=== PATIENT | female | born 1965 | race Caucasian/White ===

== ENCOUNTER 2016-10-23 17:38 | Emergency (ER) | payer OTHER ==
[2016-10-23 21:03] LABS: HEMOGLOBIN 10.2 gm/dl (12.3-15.3); RED BLOOD COUNT 4.44 M/UL (4.00-5.10); WHITE BLOOD COUNT 12.1 K/UL (4.5-11.0)
[2016-10-23 21:20] LABS: BUN/CREATININE RATIO 8 (0-10)
== END 2016-10-23 23:24 | disposition home or self-care (01) ==
LOC: ER1 17:38
PROVIDERS: Emergency Medicine
DX: J18.9 Pneumonia, unspecified organism (principal); I10 Essential (primary) hypertension
CPT/HCPCS: 36415; 71020; 80053; 82550; 82553; 83874; 83880; 84484; 85025; 85379; 93005; 96361; 96374; 96375; 99285; J0696; J2405; J7050; Q9963

== ENCOUNTER → 2020-12-19 | Outpatient (CLI) | payer BC | LOC: US 14:53 | DX: R68.89 Other general symptoms and signs (principal) | CPT/HCPCS: 76536 ==

== ENCOUNTER → 2021-06-06 | Outpatient (CLI) | payer OTHER | LOC: EXRD 06-02 13:45 | DX: E04.2 Nontoxic multinodular goiter (principal) | CPT/HCPCS: 76536 ==

== ENCOUNTER → 2021-09-29 | Day surgery (SDC) | payer OTHER ==
[~2021-09-29] MED LIST: CRESTOR20 MG PO; HORMONE PATCH TOP; HYDROCHLOROTH12.5 MG PO; LOSARTAN POTAS100 MG PO; OMEPRAZOLE40 MG PO; PROGESTERONE200 MG PO
== END | disposition home or self-care (01) ==
LOC: OR 06:21
DX: Z12.11 Encounter for screening for malignant neoplasm of colon (principal); K63.5 Polyp of colon; I10 Essential (primary) hypertension; E78.5 Hyperlipidemia, unspecified; K21.9 Gastro-esophageal reflux disease without esophagitis; Z79.899 Other long term (current) drug therapy
CPT/HCPCS: J2704; J7030; J7040